=== PATIENT | female | born 1940 | race Caucasian/White ===

== ENCOUNTER 2018-03-21 10:47 | Inpatient (IN) ==
[2018-03-21] MEDS ORDERED: Chlorhexidine Gluconate 2% 1 Pack (2 Cloths) TOPICAL ONE (11:30)
[2018-03-21] MEDS ORDERED: Metoprolol Tartrate 25 MG Tablet PO ONE (11:30)
[2018-03-21] MEDS ORDERED: Sodium Chlor 0.9% Inj 500 ML IV.CONT ONE (11:30)
[2018-03-21] MEDS ORDERED: Dextrose 5%/NaCl 0.9% Inj 1,000 ML IV.SIG SCH (11:45)
[2018-03-21] MEDS ORDERED: ceFAZolin 2 GM IV; once IV.SIG SCH (11:45)
[2018-03-21] MEDS ORDERED: Bupivacaine/Epinephrine Inj 0.25% 50 ML Vial ONE (13:09)
[2018-03-21] MEDS ORDERED: ceFAZolin 1 GM Premix Inj 2 GM/100 ML PIGGYBACK IV.SIG ONE (13:09)
[2018-03-21] MEDS ORDERED: Sugammadex Inj 200 MG/2 ML Vial IV.PUSH ONE (13:22)
[2018-03-21] MEDS ORDERED: Albumin Human 5% Inj 500 ML IV.SIG ONE (14:57)
--- NOTE | 2018-03-21 15:03 | P.OP ---
- Preoperative Diagnosis (1) Rectal cancer - Postoperative Diagnosis (1) Rectal cancer Date of procedure: 03/21/18 Procedure: cystostoscopy with bilateral ureteral catheters Anesthesia: SUNDAY Surgeon: Juancho Stephen DO Estimated blood loss (mL): 0 Pathology: none sent Operation and Findings: 77-year-old female with a diagnosis of rectal cancer. She elected to undergo surgery by Dr. Montes and requests were made for bilateral ureteral catheter placement. Patient was brought to the operating room placed in the dorsolithotomy position, prepped and draped you sterile fashion, received preprocedure antibiotics and general endotracheal tube anesthesia was administered. 22 Azerbaijani cystoscope was inserted in the bladder and a large cystocele was noted. The left ureteral orifice was identified and a 5 Azerbaijani open-ended catheter was inserted in the left ureteral orifice up into the kidney without difficultly. This was repeated on the right side without difficulty. The Davis was inserted and attached to the catheters. The patient tolerated the procedure well.
[2018-03-21 16:03] LABS: ABG Base Excess -6.7 mmol/L (-2-2); ABG PCO2 36 mmHg (38-42); ABG PO2 199 mmHG (61-120)
[2018-03-21 16:04] LABS: Hematocrit 27.4 % (35.0-46.0)
[2018-03-21] MEDS ORDERED: Bupivacaine Liposomal PF 1.3% Inj 20 ML Vial ONE ×2 (16:34→16:55)
[2018-03-21] MEDS ORDERED: Bupivacaine PF 0.25% Inj 30 ML Vial ONE ×2 (16:34→16:55)
[2018-03-21 17:19] LABS: Baso % (Auto) 0.4 % (0.0-2.0); Eos % (Auto) 0.1 % (0.0-4.0); Hematocrit 31.7 % (35.0-46.0); Hemoglobin 10.4 gm/dL (11.6-15.3); Lymph # (Auto) 1.2 th/mm3 (1.0-4.8); Lymph % (Auto) 9.6 % (9.0-44.0); Mean Corpuscular HGB Conc 32.7 % (32.0-36.0); Mean Corpuscular Hemoglobin 26.9 pg (27.0-34.0); Mean Corpuscular Volume 82.3 fL (80.0-100.0); Mean Platelet Volume 8.4 fL (7.0-11.0); Mono # (Auto) 0.4 th/mm3 (0.0-0.9); Mono % (Auto) 3.3 % (0.0-8.0); Neut % (Auto) 86.6 % (16.0-70.0); Platelet Count 404 th/mm3 (150-450); Red Blood Count 3.85 mil/mm3 (4.00-5.30); Red Cell Distribution Width 17.4 % (11.6-17.2); White Blood Count 12.6 th/mm3 (4.0-11.0)
[2018-03-21] MEDS ORDERED: Potassium Chlor 20 mEq Premix 20 MEQ/100 ML PIGGYBACK IV.SIG PRN ×2 (17:36→17:50)
[2018-03-21] MEDS ORDERED: Naloxone Inj 0.4 MG/ML Vial IV.PUSH PRN (17:38)
[2018-03-21] MEDS ORDERED: Potassium Chlor 20 mEq Premix 20 MEQ/100 ML PIGGYBACK IV.SIG SCH (17:45)
[2018-03-21] MEDS ORDERED: fentaNYL Citrate Inj 100 MCG/2 ML Ampul ONE (17:49)
[2018-03-21] MEDS ORDERED: Morphine Inj 4 MG/ML Vial ONE (17:50)
[2018-03-21 17:51] LABS: Anion Gap 16 meq/L (5-15); Blood Urea Nitrogen 12 mg/dL (7-18); Calcium 6.2 mg/dL (8.5-10.1); Carbon Dioxide 19.2 meq/L (21.0-32.0); Chloride 108 meq/L (98-107); Glomerular Filtration Rate Greater Than 89 mL/min (>89); Glucose,Random 156 mg/dL (74-106); Potassium 3.5 meq/L (3.5-5.1); Sodium 143 meq/L (136-145)
[2018-03-21 18:08] LABS: Albumin 2.2 g/dL (3.4-5.0); Calcium-Albumin Corrected 7.6 mg/dL (8.5-10.1)
[2018-03-21] MEDS: Dextrose 5%/NaCl 0.9% Inj 1,000 ML IV.CONT SCH (18:13)
[2018-03-21] MEDS: Morphine Inj 30 MG/30 ML PCA.VIAL PCA PRN (18:14)
--- NOTE | 2018-03-21 20:08 | MP ---
cc: Soila Montes MD, Patricia CRNA Latif, Sajid MD DATE OF OPERATION: 03/21/2018 PREOPERATIVE DIAGNOSIS: Rectal cancer with metastasis to the liver. POSTOPERATIVE DIAGNOSIS: Rectal cancer with metastasis to the liver and omental metastasis as well. PROCEDURE PERFORMED: 1. Exploratory laparoscopy. 2. Open low anterior resection. 3. Omentectomy. 4. Sigmoid polypectomy. SURGEON: Soila Montes MD ANESTHESIA: General per ET tube. ESTIMATED BLOOD LOSS: 250 mL. INDICATIONS: The patient is a 77-year-old female with a near obstructing rectal cancer with known metastases to the liver. OPERATIVE COURSE: The patient was brought to the operating room, placed in the supine position. After induction of general anesthesia, the patient was placed in Jagdish stirrups and all bony prominences were carefully padded. The skin of the anterior abdominal wall, as well as the perineal area was then prepped and draped in the usual sterile fashion. Dr. Stephen then came in and performed cystoscopy with placement of bilateral ureteral catheters, please see his operative note for details. A site was then chosen for the camera, being located 2 cm above and to the right of the umbilicus. A 10/12 trocar was placed at this location under direct vision using the laparoscope. CO2 insufflation was then undertaken. A brief abdominal survey was then performed with an immediate notation of very large tumors throughout the omentum measuring possibly 15-20 cm in size. There were 3 large ones that were immediately visible plus sine other peritoneal studding. A site was then chosen for the #1 port into the right anterior superior iliac spine. A 10/12 trocar was placed at this location under direct vision using the laparoscope. A third #5 trocar was placed into the right costal margin equidistant to the #1 and the camera port. The patient was hydroplaned with head down and to the left, and the tumor was assessed. At this point, the rectal tumor was clearly visualized. She had quite a bit of redundant sigmoid, so that was not the problem, but the size of the tumors and the omentum were really quite large. One was adherent to the anterior abdominal wall, and this was divided using electrocautery. After evaluation, I did feel that this case was not appropriate for a minimally invasive approach and we converted to open. A vertical midline incision was made beginning midway between the umbilicus and the xiphoid and down to the level of the pubic tubercle. Using electrocautery, dissection was carried down to the fascia of the anterior abdominal wall, which was split the length of the skin incision. The patient was immediately noted to have large amounts of old blood in the peritoneum, which were carefully dissected out and the edges of all the tumors were quite friable and somewhat oozing. The wound was packed with moist laparotomy sponge. Bowel was then assessed beginning at the ligament of Treitz and proceeding distally, there was one area where the small bowel was adherent to the undersurface of the omental tumor in the mid transverse area, but it was easily fractured away with gentle digital pressure. One additional small area on the terminal ileum near the cecum also was fractured away from the tumor fairly easily. The cecum and ascending colon had some small peritoneal studding but nothing really significant. The omentum was noted to have very large tumors in it, 3 extending across it, but they were not actually within the bowel, so the omentum was carefully dissected free from the edge of the transverse colon using ultrasonic dissection. Once it was removed, it was sent for pathology. At this point, we did send a frozen section for pathology to be certain that this was consistent with her known primary rectal cancer, and it was. The remainder of the transverse colon was relatively free of any significant disease. She had a fairly high splenic flexure, but it was wide open, although mildly dilated, presumably secondary to her distal obstruction. The descending colon as well was open, as was the sigmoid. She had a very large tumor in the rectal area, which was adherent to the anterior pelvis as well as both the right and left side. After evaluation, it did feel that a primary resection was possible, reanastomosis was possible, diversion was definitely most reasonable, and so we proceeded with this. Small bowel was brought up and out to the right. The sigmoid colon was carefully dissected free from its lateral peritoneal attachments and freeing the left ureter and sweeping away from the specimen, the sigmoid colon was retracted to the left and the peritoneum was scored on the right. Dissection continued in this plane until we met our previous dissection. Dissection then continued posteriorly to the rectum, down to the level of the distal rectum. I then dissected up and around the right and left side with a fairly extensive lysis of adhesions in this area, freeing the tumor's adhesions to the right and left pelvic wall. Eventually, we had a dissected past the level of the mid rectal tumor, down to the level of the distal rectum. The mesentery at this level was divided using a combination of electrocautery and ultrasonic dissection, and a TX 60 stapler was placed across the bowel at this level. Unfortunately, the first stapler misfired, and so it was necessary to fire a second stapler just distal to this one. This stapler held, but upon placement of the 29 EEA stapler into the rectal stump, the posterior rectum was noted to be quite thinned, so I did elect to go a little bit further. We dissected down an additional 2-3 cm and the contour stapler was then placed across the bowel at this level. The stapler was then placed into the rectal stump and although it was very short, there was no sign of any thinned tissue. The site was then chosen for proximal division of the bowel on the proximal to mid sigmoid where the bowel was free of disease. The mesentery at this level was serially divided and ligated using 0 Vicryl ties and the pursestring stapling device was placed across the bowel at this level. The distal bowel was occluded with a Carito clamp. The bowel was amputated. It was taken to a back table where it was later opened and the near-obstructing rectal cancer was confirmed. The anvil from the 29 EEA stapler was placed into the bowel and the previously placed pursestring suture was then secured. The stapler was then again placed into the rectum from the anal cavity. The spike was advanced just anterior to the staple line. The anvil was into the spike, being careful that the bowel was not twisted. This was closed, held for 30 seconds, fired and removed, thus creating an enteroenterotomy. Both anastomotic rings appeared to be complete. A small amount of warm normal saline was placed into the pelvis. Air was insufflated in the rectum until gentle tension was noted at the anastomosis with no sign of any leakage noted. The anastomosis lay in a nice orientation with no sign of any undue tension. The peritoneal cavity was then copiously irrigated with warm normal saline. A site was then chosen for the ileostomy approximately 12 cm proximal to the ileocecal valve, and a window was made in the mesentery at this level. Site was chosen for the ileostomy being located one-third of the way from the umbilicus to the right anterior superior iliac spine. A 1.5 cm ellipse of skin was removed sharply. Using electrocautery, dissection was carried down to the fascia of the abdominal wall. The fascia was then split vertically and the fibers of the rectus abdominis muscle were split. The posterior fascia was then divided in a loop of the skin incision, and the aperture was gently opened to allow 2 fingerbreadths. The previously selected loop of bowel was then gently passed through the stoma aperture being sure that the distal bowel was in the dependent position. A #10 GUANAKITO was placed through the left lower quadrant stab incision into the pelvis and secured using 3-0 nylon. The fascia at the anterior abdominal wall was closed in a running fashion using #1 PDS. The wound was copiously irrigated with warm normal saline and closed in a running subcuticular fashion using 3-0 Vicryl. The stoma was then matured in a typical Gilda fashion using 3-0 Vicryl after stapling of the distal end with a TX 60 stapler. The remaining trocar sites were closed in interrupted subcuticular fashion using 3-0 Vicryl. Steri-Strips and sterile dressings were then applied. The right ureteral catheter was removed. All sponge, needle and instrument counts were correct and the patient was returned to the Postanesthesia Care Unit in stable condition. MD KEMAR Waldron/eliseo , 05:35 PM , 05:52 PM
[2018-03-21] MEDS: ceFAZolin 1 GM Premix Inj 1 GM/50 ML PIGGYBACK IV.SIG SCH (21:44)
[2018-03-21] MEDS: Famotidine PF Inj 20 MG/2 ML Vial IV.PUSH SCH (21:44)
[2018-03-22] MEDS: Dextrose 5%/NaCl 0.9% Inj 1,000 ML IV.CONT SCH ×3 (02:13→20:14)
[2018-03-22 04:56] LABS: Baso % (Auto) 0.1 % (0.0-2.0); Hematocrit 34.7 % (35.0-46.0); Hemoglobin 11.6 gm/dL (11.6-15.3); Lymph # (Auto) 0.6 th/mm3 (1.0-4.8); Lymph % (Auto) 5.3 % (9.0-44.0); Mean Corpuscular HGB Conc 33.4 % (32.0-36.0); Mean Corpuscular Hemoglobin 26.5 pg (27.0-34.0); Mean Corpuscular Volume 79.3 fL (80.0-100.0); Mean Platelet Volume 8.1 fL (7.0-11.0); Mono # (Auto) 0.7 th/mm3 (0.0-0.9); Mono % (Auto) 5.8 % (0.0-8.0); Neut # (Auto) 10.8 th/mm3 (1.8-7.7); Neut % (Auto) 88.8 % (16.0-70.0); Platelet Count 435 th/mm3 (150-450); Red Blood Count 4.38 mil/mm3 (4.00-5.30); Red Cell Distribution Width 16.5 % (11.6-17.2); White Blood Count 12.1 th/mm3 (4.0-11.0)
[2018-03-22] MEDS: ceFAZolin 1 GM Premix Inj 1 GM/50 ML PIGGYBACK IV.SIG SCH ×2 (05:15→14:36)
[2018-03-22 05:17] LABS: Anion Gap 9 meq/L (5-15); Blood Urea Nitrogen 10 mg/dL (7-18); Calcium 6.8 mg/dL (8.5-10.1); Carbon Dioxide 22.8 meq/L (21.0-32.0); Chloride 113 meq/L (98-107); Glomerular Filtration Rate Greater Than 89 mL/min (>89); Glucose,Random 264 mg/dL (74-106); Potassium 3.4 meq/L (3.5-5.1); Sodium 145 meq/L (136-145)
[2018-03-22 05:34] LABS: Calcium-Albumin Corrected 8.4 mg/dL (8.5-10.1)
--- NOTE | 2018-03-22 10:24 | P.PNCS ---
Subjective Colorectal Surgery Post Op Day #: 1 Interval history: afebrile, VSS UO good - stent dc'd Objective Result Diagrams: 03/22/18 04:21 03/22/18 04:21 Objective Remarks: PE alert Abd - soft, stoma pink Assessment and Plan - Plan Imp: stable post-op OOB slow PO decr IVF tx to floor
[2018-03-22] MEDS: Famotidine PF Inj 20 MG/2 ML Vial IV.PUSH SCH ×2 (11:20→20:13)
[2018-03-22] MEDS: Heparin - SQ 10,000 UNITS/ML Vial SQ SCH ×2 (11:20→20:13)
[2018-03-22 17:27] LABS: Baso % (Auto) 0.1 % (0.0-2.0); Hematocrit 34.2 % (35.0-46.0); Hemoglobin 11.4 gm/dL (11.6-15.3); Lymph # (Auto) 0.7 th/mm3 (1.0-4.8); Lymph % (Auto) 5.6 % (9.0-44.0); Mean Corpuscular HGB Conc 33.4 % (32.0-36.0); Mean Corpuscular Volume 80.8 fL (80.0-100.0); Mono # (Auto) 0.6 th/mm3 (0.0-0.9); Mono % (Auto) 4.7 % (0.0-8.0); Neut # (Auto) 10.9 th/mm3 (1.8-7.7); Neut % (Auto) 89.6 % (16.0-70.0); Platelet Count 409 th/mm3 (150-450); Red Blood Count 4.24 mil/mm3 (4.00-5.30); Red Cell Distribution Width 17.4 % (11.6-17.2); White Blood Count 12.2 th/mm3 (4.0-11.0)
[2018-03-22 18:17] LABS: Anion Gap 5 meq/L (5-15); Blood Urea Nitrogen 7 mg/dL (7-18); Calcium 6.9 mg/dL (8.5-10.1); Carbon Dioxide 25.8 meq/L (21.0-32.0); Chloride 115 meq/L (98-107); Glomerular Filtration Rate Greater Than 89 mL/min (>89); Glucose,Random 202 mg/dL (74-106); Potassium 3.5 meq/L (3.5-5.1); Sodium 146 meq/L (136-145)
[2018-03-22 18:59] LABS: Albumin 1.8 g/dL (3.4-5.0); Calcium-Albumin Corrected 8.7 mg/dL (8.5-10.1)
[2018-03-23 04:32] LABS: Baso % (Auto) 0.4 % (0.0-2.0); Eos % (Auto) 0.1 % (0.0-4.0); Hematocrit 32.1 % (35.0-46.0); Hemoglobin 10.5 gm/dL (11.6-15.3); Lymph # (Auto) 0.9 th/mm3 (1.0-4.8); Lymph % (Auto) 8.9 % (9.0-44.0); Mean Corpuscular HGB Conc 32.7 % (32.0-36.0); Mean Corpuscular Hemoglobin 26.3 pg (27.0-34.0); Mean Corpuscular Volume 80.5 fL (80.0-100.0); Mean Platelet Volume 8.7 fL (7.0-11.0); Mono # (Auto) 0.6 th/mm3 (0.0-0.9); Neut # (Auto) 8.9 th/mm3 (1.8-7.7); Neut % (Auto) 84.6 % (16.0-70.0); Platelet Count 379 th/mm3 (150-450); Red Blood Count 3.99 mil/mm3 (4.00-5.30); Red Cell Distribution Width 17.2 % (11.6-17.2); White Blood Count 10.5 th/mm3 (4.0-11.0)
[2018-03-23 05:04] LABS: Anion Gap 6 meq/L (5-15); Blood Urea Nitrogen 7 mg/dL (7-18); Calcium 6.9 mg/dL (8.5-10.1); Carbon Dioxide 25.1 meq/L (21.0-32.0); Chloride 116 meq/L (98-107); Glomerular Filtration Rate Greater Than 89 mL/min (>89); Glucose,Random 156 mg/dL (74-106); Potassium 3.2 meq/L (3.5-5.1); Sodium 147 meq/L (136-145)
[2018-03-23 05:29] LABS: Albumin 1.7 g/dL (3.4-5.0); Calcium-Albumin Corrected 8.7 mg/dL (8.5-10.1)
[2018-03-23] MEDS: Dextrose 5%/NaCl 0.9% Inj 1,000 ML IV.CONT SCH ×2 (08:07→20:18)
[2018-03-23] MEDS: Heparin - SQ 10,000 UNITS/ML Vial SQ SCH ×2 (09:09→20:18)
[2018-03-23] MEDS: Famotidine PF Inj 20 MG/2 ML Vial IV.PUSH SCH ×2 (09:10→20:18)
--- NOTE | 2018-03-23 10:24 | P.PNCS ---
Subjective Colorectal Surgery Post Op Day #: 2 Interval history: afebrile, VSS UO good GUANAKITO min Objective Result Diagrams: 03/23/18 03:23 03/23/18 03:23 Objective Remarks: PE alert Abd - soft, stoma pink, some output Assessment and Plan - Plan Imp: OOB - ambulating slow PO decr IVF
[2018-03-23] MEDS ORDERED: Albumin Human 25% Inj 100 ML IV.SIG ONE (11:00)
[2018-03-24] MEDS: Heparin - SQ 10,000 UNITS/ML Vial SQ SCH ×2 (09:00→21:41)
[2018-03-24] MEDS: Famotidine PF Inj 20 MG/2 ML Vial IV.PUSH SCH ×2 (09:00→21:41)
[2018-03-24] MEDS: Dextrose 5%/NaCl 0.9% Inj 1,000 ML IV.CONT SCH (09:55)
[2018-03-24] MEDS: Morphine Inj 30 MG/30 ML PCA.VIAL PCA PRN (09:57)
--- NOTE | 2018-03-24 13:38 | P.PNWCN ---
Wound Care Nurse Consult Description: Received new ostomy teaching consult from Doctor Morales. Communicated with: GALILEO Thapa C[facility], patient and spouse. Recommendation: 1.Please empty pouch when 1/3 to 1/2 full. 2. Monitor stoma for color, appearance and output. 3. Change ileostomy appliance every 3 to 5 days or as needed for leaking. 4. Do not cut moldable appliances. 5. Do not tape adhesive bordered edges to reinforce. 6. Monitor for signs/symptoms of dehydration. Bowel Diversion Stoma - Bowel Stoma Right Lower Abdomen Stoma Diameter: 30 (~30mm) Stoma Appearance: Beefy Red, Protruding, Round Loop Supporting Rodriguez: No Collection Device: Two-piece Wafer Size: 2 3/4 moldable appliance Debora-Stomal Surrounding Tissue Sensation Description: No Symptoms - Additional Information Additional Information: Patient seen today for new ileostomy teaching. Patient is sitting up in chair with spouse in room. Patient is alert and appears ready teaching. Ileostomy appliance was first assessed. Appliance is dry and intact. Ileostomy stoma is visible through transparent pouch, measuring ~1 1/4 inches or ~30 mm in diameter. Stoma is red in color, round, and protruding. Emptied ~10 ml of brown liquid effluent from pouch. Patient was instructed on type of surgery, when, and how to empty pouch, when to change ostomy appliance,common complications with ileostomies, also s/s of dehydration. Patient and spouse verbalize understanding. Education kit was delivered and patient was instructed to read ileostomy after surgery booklet provided.Will follow up for continued teaching tomorrow.
--- NOTE | 2018-03-24 14:36 | P.PNCS ---
Subjective Colorectal Surgery Post Op Day #: 3 Interval history: s/p ex lap, omentectomy, LAR, diverting ileostomy Objective Result Diagrams: 03/23/18 03:23 03/23/18 03:23 Objective Remarks: PE alert Abd - soft, stoma pink, some output Assessment and Plan - Plan Mobilize D/C ryder and [employer] Advance diet Possibly home tomorrow
[2018-03-24] MEDS: Potassium Chlor 20 mEq Premix 20 MEQ/100 ML PIGGYBACK IV.SIG SCH (23:13)
[2018-03-25] MEDS: Potassium Chlor 20 mEq Premix 20 MEQ/100 ML PIGGYBACK IV.SIG SCH (03:18)
[2018-03-25] MEDS: Famotidine PF Inj 20 MG/2 ML Vial IV.PUSH SCH (08:38)
[2018-03-25] MEDS: Heparin - SQ 10,000 UNITS/ML Vial SQ SCH (08:38)
--- NOTE | 2018-03-25 10:25 | P.PNCS ---
Subjective Colorectal Surgery Post Op Day #: 4 Interval history: s/p omentectomy, LAR, diverting ileostomy Objective Result Diagrams: 03/23/18 03:23 03/23/18 03:23 Objective Remarks: PE alert Abd - soft, stoma pink, some output Assessment and Plan - Plan Mobilize Home today Followup 3 weeks
--- NOTE | 2018-03-25 13:56 | P.PNWCN ---
Wound Care Nurse Consult Description: Patient seen for follow up teaching today of new ileostomy. Communicated with: RN Sil Sanchez, Patient and spouse. Recommendation: 1.Please empty pouch when 1/3 to 1/2 full. 2. Monitor stoma for color, appearance and output. 3. Change ileostomy appliance every 3 to 5 days or as needed for leaking. 4. Do not cut moldable appliances. 5. Do not tape adhesive bordered edges to reinforce. 6. Monitor for signs/symptoms of dehydration. Bowel Diversion Stoma - Bowel Stoma Right Lower Abdomen Stoma Diameter: 32 (~32mm) Stoma Appearance: Beefy Red, Protruding, Round Loop Supporting Rodriguez: No Collection Device: Two-piece, Moldable Wafer Wafer Size: 2 3/4 inch appliance two piece Stoma Care: Pouch and Wafer Changed, Skin Care Debora-Stomal Skin Appearance: Intact Debora-Stomal Surrounding Tissue Sensation Description: No Symptoms - Additional Information Additional Information: Patient seen today for follow up teaching of new ileostomy. ileostomy appliance was changed with patient standing up in bathroom. Removed two piece 2 3/[address] Peristomal skin was cleansed with warm water and wash cloth. Skin was patted dry. Applied karin seal to even peristomal skin and then applied new 2 3/4 ostomy moldable two piece appliance in place. Stoma is red, round, and well protruding. Stoma measures today 1 1/4 inches or 32 mm in diameter. There is ~20 ml of brown liquid effluent noted in removed pouch. Patient reports emptying pouch earlier this morning. Verbally instructed patient during change. Patient does need further teaching at home. Recommend home health care to continue teaching at home. script for ostomy supplies is in chart. Patient gave verbal consent for starter kit to be ordered from [facility]. Starter kit was ordered with one piece transparent pouches that are precut, per patient's request.
--- NOTE | 2018-03-25 14:43 | P.DCO ---
- Diagnosis (1) Rectal cancer Status: Acute - Home Health Nursing Order: Wound care and dressing changes - Case Management Consult Case Management Consult-Home Health: Yes - Certification I have seen patient Grace Swartz on 03/25/18. My clinical findings support the need for the requested home health care services because: Limited mobility due to disease progression, Deconditioned with increased weakness, Limited ability to care for self I certify that my clinical findings support that this patient is homebound because: Post-op weakness
--- NOTE | 2018-03-25 15:05 | MD ---
cc: Soila Montes MD DATE OF DISCHARGE: DATE OF ADMISSION: 03/21/2018 DATE OF DISCHARGE: 03/25/2018 ADMISSION DIAGNOSIS: Rectal cancer with metastasis to the liver. DISCHARGE DIAGNOSES: Rectal cancer with metastasis to the liver, with omental metastasis. PROCEDURES: 1. Exploratory laparoscopy. 2. Open low anterior resection. 3. Omentectomy. 4. Sigmoid polypectomy. PROCEDURES: 1. Exploratory laparoscopy. 2. Open low anterior resection. 3. Omentectomy. 4. Sigmoid polypectomy. 5. Diverting ileostomy. HOSPITAL COURSE: The patient is a 77-year-old female with near-obstructing rectal cancer with known metastasis to the liver. She was admitted to the hospital on 03/21/2018 after an outpatient bowel prep. She was taken to the operating room where she underwent the above-named procedures. Intraoperative findings included large bulky tumor in the omentum as well as some scattered tumor seeding throughout the peritoneal cavity and a tumor within the liver. She had near total obstruction of the distal rectum. Postoperatively, the patient did well with rapid return of bowel and bladder function. She was discharged to home on postoperative day 4 with home health care for her stoma and instructions to follow up with myself in the office. Final pathology was not available at the time of discharge. MD KEMAR Waldron/mu , 01:35 PM , 01:41 PM
== END 2018-03-25 14:30 | disposition home health service (06) ==
LOC: HSDC 10:47 → EDSTATUS 13:00 → HSDI 17:40 → HCPC 19:09
PROVIDERS: ADMIT Colon & Rectal Surgery; ATTEND Colon & Rectal Surgery